=== PATIENT | female | born 1955 | race Caucasian/White ===

== ENCOUNTER → 2016-09-21 | Outpatient (CLI) | payer OTHER ==
[~2016-09-21] MED LIST: ACETAMINOPHEN 325 MG TAB PO ONE; diphenhydrAMINE 25 MG CAP PO ONE
== END ==
LOC: RMCCLAB 09-19 06:24 → EDSTATUS 09-19 10:02 → FOBOP 09-19 10:03
PROVIDERS: ATTEND Internal Medicine Hematology & Oncology
PROC: 30233R1 Transfusion of Nonautologous Platelets into Peripheral Vein, Percutaneous Approach (ICD-10-PCS; principal; 2016-09-21)
DX: D46.9 Myelodysplastic syndrome, unspecified (principal)

== ENCOUNTER → 2016-09-25 | Outpatient (CLI) | payer OTHER | LOC: F1NOP 16:02 | PROVIDERS: ATTEND Internal Medicine Hematology & Oncology | PROC: 30233R1 Transfusion of Nonautologous Platelets into Peripheral Vein, Percutaneous Approach (ICD-10-PCS; principal; 2016-09-25) | DX: D46.9 Myelodysplastic syndrome, unspecified (principal) | CPT/HCPCS: 36430; P9037 ==

== ENCOUNTER 2016-10-02 11:28 | Outpatient (CLI) | payer OTHER ==
[2016-10-01 15:26] LABS: % IMMATURE GRANULOCYTES 1.5 % (0.0-1.1); ABSOLUTE IMMATURE GRANULOCYTES 0.07 10^3/uL (0-0.10); ABSOLUTE NRBC COUNT 0.21 10^3/uL (0-0.01); HEMATOCRIT 36.2 % (38.0-47.0); HEMOGLOBIN 11.3 g/dL (12.6-16.3); LIPEMIA HEMOLYSIS FLAG 80 (0-99); MEAN CELL HEMOGLOBIN 32.7 pg (27.9-34.1); MEAN CELL HEMOGLOBIN CONC. 31.2 g/dL (32.4-36.7); MEAN CELL VOLUME 104.6 fL (81.5-99.8); PLATELET CLUMPS FLAG 10 (0-99); RED BLOOD CELL COUNT 3.46 10^6/uL (4.18-5.33); RED CELL DISTRIBUTION WIDTH 16.8 % (11.5-15.2)
[2016-10-01 15:29] LABS: NRBC-AUTO% 4.6 % (0.0-0.2); PLATELET COUNT 9 10^3/uL (150-400)
[2016-10-01 16:08] LABS: ALANINE AMINOTRANSFERASE 38 IU/L (9-52); ALKALINE PHOSPHATASE 62 IU/L (38-126); ANION GAP 10 mEq/L (8-16); ASPARTATE AMINOTRANSFERASE 28 IU/L (14-46); CALCIUM 8.9 mg/dL (8.5-10.4); CARBON DIOXIDE 25 mEq/l (22-31); CHLORIDE 103 mEq/L (97-110); GLOMERULAR FILTRATION RATE 56; GLUCOSE 108 mg/dL (70-100); POTASSIUM 3.7 mEq/L (3.5-5.2); SODIUM 138 mEq/L (134-144); TOTAL PROTEIN 7.2 g/dL (6.3-8.2)
[2016-10-02] MEDS ORDERED: diphenhydrAMINE 25 MG CAP PO ONE (12:00)
[2016-10-02] MEDS ORDERED: ACETAMINOPHEN 325 MG TAB PO ONE (12:00)
== END 2016-10-02 12:53 | disposition home or self-care (01) ==
LOC: FOBOP 11:28 → EDSTATUS 11:28 → FOBOP 12:53
PROVIDERS: ATTEND Internal Medicine Hematology & Oncology
PROC: 30233R1 Transfusion of Nonautologous Platelets into Peripheral Vein, Percutaneous Approach (ICD-10-PCS; principal; 2016-10-02)
DX: D46.9 Myelodysplastic syndrome, unspecified (principal)
CPT/HCPCS: 36430; P9037

== ENCOUNTER 2016-10-05 09:54 | Outpatient (CLI) | payer OTHER ==
[2016-10-05 08:18] LABS: % IMMATURE GRANULOCYTES 2.4 % (0.0-1.1); ABSOLUTE IMMATURE GRANULOCYTES 0.09 10^3/uL (0-0.10); ABSOLUTE NRBC COUNT 0.07 10^3/uL (0-0.01); HEMATOCRIT 35.5 % (38.0-47.0); HEMOGLOBIN 11.5 g/dL (12.6-16.3); LIPEMIA HEMOLYSIS FLAG 80 (0-99); MEAN CELL HEMOGLOBIN CONC. 32.4 g/dL (32.4-36.7); PLATELET CLUMPS FLAG 10 (0-99); RED BLOOD CELL COUNT 3.48 10^6/uL (4.18-5.33); RED CELL DISTRIBUTION WIDTH 16.2 % (11.5-15.2)
[2016-10-05 08:19] LABS: NRBC-AUTO% 1.9 % (0.0-0.2)
[2016-10-05] MEDS ORDERED: ACETAMINOPHEN 325 MG TAB PO ONE (11:30)
[2016-10-05] MEDS ORDERED: diphenhydrAMINE 25 MG CAP PO ONE (11:30)
[2016-10-05 17:11] LABS: PLATELET COUNT < 3.0 10^3/uL (150-400)
== END 2016-10-05 12:00 | disposition home or self-care (01) ==
LOC: FOBOP 09:54
PROVIDERS: ATTEND Internal Medicine Hematology & Oncology
PROC: 30233R1 Transfusion of Nonautologous Platelets into Peripheral Vein, Percutaneous Approach (ICD-10-PCS; principal; 2016-10-05)
DX: D46.A Refractory cytopenia with multilineage dysplasia (principal)
CPT/HCPCS: 36430; P9037; 99001-90

== ENCOUNTER → 2016-10-10 | Outpatient (CLI) | payer OTHER ==
[2016-10-10 09:09] LABS: % IMMATURE GRANULOCYTES 0.9 % (0.0-1.1); ABSOLUTE IMMATURE GRANULOCYTES 0.03 10^3/uL (0-0.10); ABSOLUTE NRBC COUNT 0.03 10^3/uL (0-0.01); HEMATOCRIT 33.2 % (38.0-47.0); HEMOGLOBIN 10.6 g/dL (12.6-16.3); MEAN CELL HEMOGLOBIN CONC. 31.9 g/dL (32.4-36.7); MEAN CELL VOLUME 100.3 fL (81.5-99.8); MEAN PLATELET VOLUME 8.7 fL (8.7-11.7); NRBC-AUTO% 0.9 % (0.0-0.2); RED BLOOD CELL COUNT 3.31 10^6/uL (4.18-5.33); RED CELL DISTRIBUTION WIDTH 15.9 % (11.5-15.2)
[2016-10-10 14:38] VITALS: BP 103/62; PULSE 100; RESP 17; TEMP 98.6; O2SAT 98
== END ==
LOC: RMCCLAB 05:26 → EDSTATUS 13:15 → FOBOP 13:15
PROVIDERS: ATTEND Internal Medicine Hematology & Oncology
PROC: 30233R1 Transfusion of Nonautologous Platelets into Peripheral Vein, Percutaneous Approach (ICD-10-PCS; principal; 2016-10-10)
DX: D46.A Refractory cytopenia with multilineage dysplasia (principal)
CPT/HCPCS: 36430; P9037; 99001-90

== ENCOUNTER → 2016-10-16 | Outpatient (CLI) | payer OTHER ==
[2016-10-15 08:32] LABS: % IMMATURE GRANULOCYTES 1.8 % (0.0-1.1); ABSOLUTE NRBC COUNT 0.22 10^3/uL (0-0.01); HEMATOCRIT 30.8 % (38.0-47.0); HEMOGLOBIN 9.6 g/dL (12.6-16.3); LIPEMIA HEMOLYSIS FLAG 80 (0-99); MEAN CELL HEMOGLOBIN 32.2 pg (27.9-34.1); MEAN CELL HEMOGLOBIN CONC. 31.2 g/dL (32.4-36.7); MEAN CELL VOLUME 103.4 fL (81.5-99.8); PLATELET CLUMPS FLAG 0 (0-99); PLATELET COUNT 12 10^3/uL (150-400); RED BLOOD CELL COUNT 2.98 10^6/uL (4.18-5.33); RED CELL DISTRIBUTION WIDTH 16.9 % (11.5-15.2)
[2016-10-15 08:33] LABS: NRBC-AUTO% 3.9 % (0.0-0.2)
[2016-10-15 08:45] LABS: ALANINE AMINOTRANSFERASE 35 IU/L (9-52); ALBUMIN 4.2 g/dL (3.5-5.0); ALKALINE PHOSPHATASE 55 IU/L (38-126); ANION GAP 9 mEq/L (8-16); ASPARTATE AMINOTRANSFERASE 25 IU/L (14-46); BILIRUBIN,TOTAL 1.1 mg/dL (0.1-1.4); CALCIUM 9.2 mg/dL (8.5-10.4); CARBON DIOXIDE 22 mEq/l (22-31); CHLORIDE 108 mEq/L (97-110); CREATININE 0.8 mg/dL (0.6-1.0); GLOMERULAR FILTRATION RATE > 60; GLUCOSE 112 mg/dL (70-100); POTASSIUM 3.8 mEq/L (3.5-5.2); SODIUM 139 mEq/L (134-144); TOTAL PROTEIN 7.4 g/dL (6.3-8.2)
== END ==
LOC: RMCCLAB 10-15 05:29 → EDSTATUS 16:53 → F3NOP 16:53
PROVIDERS: ATTEND Internal Medicine Hematology & Oncology
PROC: 30233R1 Transfusion of Nonautologous Platelets into Peripheral Vein, Percutaneous Approach (ICD-10-PCS; principal; 2016-10-16)
DX: D46.9 Myelodysplastic syndrome, unspecified (principal)
CPT/HCPCS: 36430; P9037

== ENCOUNTER 2016-10-20 12:53 | Outpatient (CLI) | payer OTHER ==
[2016-10-18 08:19] LABS: % IMMATURE GRANULOCYTES 3.9 % (0.0-1.1); ABSOLUTE IMMATURE GRANULOCYTES 0.19 10^3/uL (0-0.10); ABSOLUTE NRBC COUNT 0.28 10^3/uL (0-0.01); HEMATOCRIT 32.5 % (38.0-47.0); HEMOGLOBIN 10.2 g/dL (12.6-16.3); MEAN CELL HEMOGLOBIN 31.8 pg (27.9-34.1); MEAN CELL HEMOGLOBIN CONC. 31.4 g/dL (32.4-36.7); MEAN CELL VOLUME 101.2 fL (81.5-99.8); MEAN PLATELET VOLUME 13.1 fL (8.7-11.7); RED BLOOD CELL COUNT 3.21 10^6/uL (4.18-5.33); RED CELL DISTRIBUTION WIDTH 16.9 % (11.5-15.2)
[2016-10-18 08:20] LABS: NRBC-AUTO% 5.7 % (0.0-0.2)
[2016-10-18 08:41] LABS: ALANINE AMINOTRANSFERASE 28 IU/L (9-52); ALBUMIN 3.7 g/dL (3.5-5.0); ALKALINE PHOSPHATASE 60 IU/L (38-126); ANION GAP 11 mEq/L (8-16); ASPARTATE AMINOTRANSFERASE 26 IU/L (14-46); BILIRUBIN,TOTAL 0.9 mg/dL (0.1-1.4); CALCIUM 8.9 mg/dL (8.5-10.4); CARBON DIOXIDE 24 mEq/l (22-31); CHLORIDE 107 mEq/L (97-110); CREATININE 0.7 mg/dL (0.6-1.0); GLOMERULAR FILTRATION RATE > 60; GLUCOSE 93 mg/dL (70-100); SODIUM 142 mEq/L (134-144); TOTAL PROTEIN 7.3 g/dL (6.3-8.2)
[2016-10-20] MEDS ORDERED: ACETAMINOPHEN 325 MG TAB PO ONE (14:30)
[2016-10-20 15:41] VITALS: BP 101/69; PULSE 76; RESP 24; TEMP 98.6; O2SAT 96
== END 2016-10-20 15:00 | disposition home or self-care (01) ==
LOC: FOBOP 12:53
PROVIDERS: ATTEND Internal Medicine Hematology & Oncology
PROC: 30233R1 Transfusion of Nonautologous Platelets into Peripheral Vein, Percutaneous Approach (ICD-10-PCS; principal; 2016-10-20)
DX: D46.9 Myelodysplastic syndrome, unspecified (principal); Z85.3 Personal history of malignant neoplasm of breast
CPT/HCPCS: 36430; P9037

== ENCOUNTER → 2016-10-25 | Outpatient (CLI) | payer OTHER ==
[2016-10-24 15:22] LABS: % IMMATURE GRANULOCYTES 2.4 % (0.0-1.1); ABSOLUTE IMMATURE GRANULOCYTES 0.11 10^3/uL (0-0.10); ABSOLUTE NRBC COUNT 0.31 10^3/uL (0-0.01); HEMATOCRIT 35.7 % (38.0-47.0); HEMOGLOBIN 11.1 g/dL (12.6-16.3); MEAN CELL HEMOGLOBIN 32.2 pg (27.9-34.1); MEAN CELL HEMOGLOBIN CONC. 31.1 g/dL (32.4-36.7); MEAN CELL VOLUME 103.5 fL (81.5-99.8); MEAN PLATELET VOLUME 8.4 fL (8.7-11.7); RED BLOOD CELL COUNT 3.45 10^6/uL (4.18-5.33); RED CELL DISTRIBUTION WIDTH 18.2 % (11.5-15.2)
[2016-10-24 15:23] LABS: NRBC-AUTO% 6.7 % (0.0-0.2)
[2016-10-24 15:56] LABS: ALANINE AMINOTRANSFERASE 43 IU/L (9-52); ALBUMIN 4.3 g/dL (3.5-5.0); ALKALINE PHOSPHATASE 64 IU/L (38-126); ANION GAP 11 mEq/L (8-16); ASPARTATE AMINOTRANSFERASE 43 IU/L (14-46); BILIRUBIN,TOTAL 1.1 mg/dL (0.1-1.4); CALCIUM 9.7 mg/dL (8.5-10.4); CARBON DIOXIDE 25 mEq/l (22-31); CHLORIDE 105 mEq/L (97-110); CREATININE 0.7 mg/dL (0.6-1.0); GLOMERULAR FILTRATION RATE > 60; GLUCOSE 100 mg/dL (70-100); POTASSIUM 4.1 mEq/L (3.5-5.2); SODIUM 141 mEq/L (134-144); TOTAL PROTEIN 7.5 g/dL (6.3-8.2)
[~2016-10-25] MED LIST changes: -diphenhydrAMINE 25 MG CAP PO ONE
[2016-10-25] MEDS: diphenhydrAMINE 25 MG CAP PO ONE ×2 (17:53→18:03)
== END ==
LOC: RMCCLAB 10-24 06:36 → EDSTATUS 17:15 → FOBOP 17:16
PROVIDERS: ATTEND Internal Medicine Hematology & Oncology
PROC: 30233R1 Transfusion of Nonautologous Platelets into Peripheral Vein, Percutaneous Approach (ICD-10-PCS; principal; 2016-10-25)
DX: D46.A Refractory cytopenia with multilineage dysplasia (principal)
CPT/HCPCS: 36430; P9037

== ENCOUNTER → 2016-10-30 | Outpatient (CLI) | payer OTHER ==
[2016-10-29 17:09] LABS: % IMMATURE GRANULOCYTES 1.5 % (0.0-1.1); ABSOLUTE IMMATURE GRANULOCYTES 0.07 10^3/uL (0-0.10); ABSOLUTE NRBC COUNT 0.26 10^3/uL (0-0.01); HEMATOCRIT 38.7 % (38.0-47.0); HEMOGLOBIN 11.9 g/dL (12.6-16.3); LIPEMIA HEMOLYSIS FLAG 80 (0-99); MEAN CELL HEMOGLOBIN 31.6 pg (27.9-34.1); MEAN CELL HEMOGLOBIN CONC. 30.7 g/dL (32.4-36.7); MEAN CELL VOLUME 102.7 fL (81.5-99.8); PLATELET CLUMPS FLAG 0 (0-99); PLATELET COUNT 5 10^3/uL (150-400); RED BLOOD CELL COUNT 3.77 10^6/uL (4.18-5.33); RED CELL DISTRIBUTION WIDTH 18.4 % (11.5-15.2)
[2016-10-29 17:24] LABS: NRBC-AUTO% 5.5 % (0.0-0.2)
[2016-10-29 19:08] LABS: ALANINE AMINOTRANSFERASE 38 IU/L (9-52); ALBUMIN 4.6 g/dL (3.5-5.0); ALKALINE PHOSPHATASE 68 IU/L (38-126); ANION GAP 12 mEq/L (8-16); ASPARTATE AMINOTRANSFERASE 34 IU/L (14-46); CALCIUM 9.5 mg/dL (8.5-10.4); CARBON DIOXIDE 23 mEq/l (22-31); CHLORIDE 104 mEq/L (97-110); CREATININE 0.8 mg/dL (0.6-1.0); GLOMERULAR FILTRATION RATE > 60; GLUCOSE 99 mg/dL (70-100); POTASSIUM 4.3 mEq/L (3.5-5.2); SODIUM 139 mEq/L (134-144); TOTAL PROTEIN 8.1 g/dL (6.3-8.2)
[~2016-10-30] MED LIST changes: +diphenhydrAMINE 25 MG CAP PO ONE
== END ==
LOC: RMCCLAB 10-29 14:29 → EDSTATUS 09:48 → FOBOP 09:49
PROVIDERS: ATTEND Internal Medicine Hematology & Oncology
PROC: 30233R1 Transfusion of Nonautologous Platelets into Peripheral Vein, Percutaneous Approach (ICD-10-PCS; principal; 2016-10-30)
DX: D46.9 Myelodysplastic syndrome, unspecified (principal)
CPT/HCPCS: 36430; P9037; 99001-90

== ENCOUNTER → 2016-11-03 | Outpatient (CLI) | payer OTHER ==
[2016-11-02 16:31] LABS: % IMMATURE GRANULOCYTES 1.1 % (0.0-1.1); ABSOLUTE IMMATURE GRANULOCYTES 0.05 10^3/uL (0-0.10); ABSOLUTE NRBC COUNT 0.14 10^3/uL (0-0.01); HEMOGLOBIN 11.6 g/dL (12.6-16.3); LIPEMIA HEMOLYSIS FLAG 80 (0-99); MEAN CELL HEMOGLOBIN CONC. 31.4 g/dL (32.4-36.7); MEAN CELL VOLUME 101.9 fL (81.5-99.8); PLATELET CLUMPS FLAG 0 (0-99); RED BLOOD CELL COUNT 3.63 10^6/uL (4.18-5.33); RED CELL DISTRIBUTION WIDTH 17.9 % (11.5-15.2)
[2016-11-02 16:33] LABS: PLATELET COUNT 19 10^3/uL (150-400)
[2016-11-02 16:40] LABS: ALANINE AMINOTRANSFERASE 39 IU/L (9-52); ALBUMIN 4.6 g/dL (3.5-5.0); ALKALINE PHOSPHATASE 69 IU/L (38-126); ANION GAP 9 mEq/L (8-16); ASPARTATE AMINOTRANSFERASE 29 IU/L (14-46); BILIRUBIN,TOTAL 1.1 mg/dL (0.1-1.4); CALCIUM 9.7 mg/dL (8.5-10.4); CARBON DIOXIDE 24 mEq/l (22-31); CHLORIDE 103 mEq/L (97-110); CREATININE 0.7 mg/dL (0.6-1.0); GLOMERULAR FILTRATION RATE > 60; GLUCOSE 89 mg/dL (70-100); POTASSIUM 4.4 mEq/L (3.5-5.2); SODIUM 136 mEq/L (134-144)
== END ==
LOC: RMCCLAB 11-02 06:03 → EDSTATUS 11:57 → FOBOP 11:58
PROVIDERS: ATTEND Internal Medicine Hematology & Oncology
PROC: 30233R1 Transfusion of Nonautologous Platelets into Peripheral Vein, Percutaneous Approach (ICD-10-PCS; principal; 2016-11-03)
DX: D46.9 Myelodysplastic syndrome, unspecified (principal)
CPT/HCPCS: 36430; P9037; 99001-90

== ENCOUNTER 2016-11-06 15:39 | Outpatient (CLI) | payer OTHER ==
[2016-11-06 11:24] LABS: % IMMATURE GRANULOCYTES 0.9 % (0.0-1.1); ABSOLUTE IMMATURE GRANULOCYTES 0.04 10^3/uL (0-0.10); ABSOLUTE NRBC COUNT 0.15 10^3/uL (0-0.01); HEMOGLOBIN 11.9 g/dL (12.6-16.3); LIPEMIA HEMOLYSIS FLAG 80 (0-99); MEAN CELL HEMOGLOBIN 32.6 pg (27.9-34.1); MEAN CELL HEMOGLOBIN CONC. 31.3 g/dL (32.4-36.7); MEAN CELL VOLUME 104.1 fL (81.5-99.8); PLATELET CLUMPS FLAG 0 (0-99); RED BLOOD CELL COUNT 3.65 10^6/uL (4.18-5.33); RED CELL DISTRIBUTION WIDTH 17.6 % (11.5-15.2)
[2016-11-06 11:28] LABS: NRBC-AUTO% 3.5 % (0.0-0.2)
[2016-11-06 11:32] LABS: PLATELET COUNT 3 10^3/uL (150-400)
[2016-11-06] MEDS ORDERED: ACETAMINOPHEN 325 MG TAB PO ONE (16:30)
== END 2016-11-06 17:16 | disposition home or self-care (01) ==
LOC: EDSTATUS 15:39 → FOBOP 15:39
PROVIDERS: ATTEND Internal Medicine Hematology & Oncology
PROC: 30233R1 Transfusion of Nonautologous Platelets into Peripheral Vein, Percutaneous Approach (ICD-10-PCS; principal; 2016-11-06)
DX: D46.9 Myelodysplastic syndrome, unspecified (principal)
CPT/HCPCS: J1200; P9037